=== PATIENT | female | born 1975 | race Caucasian/White ===

== ENCOUNTER → 2017-05-16 | Outpatient (CLI) | payer BC ==
--- NOTE | 2017-05-18 08:42 | MM ---
Reason for exam: screening (asymptomatic). Last mammogram was performed 6 years and 4 months ago. History: Family history of breast cancer in sister at age 41. Physical Findings: A clinical breast exam by your physician is recommended on an annual basis and results should be correlated with mammographic findings. MG Screening Mammo w CAD Bilateral CC and MLO view(s) were taken. Prior study comparison: December 30, 2010, CAD bilateral diagnostic mammogram. The breast tissue is heterogeneously dense. This may lower the sensitivity of mammography. Diffuse increased breast density from 2011. There is global asymmetry in the left upper outer quadrant. ASSESSMENT: Incomplete: need additional imaging evaluation, BI-RAD 0 RECOMMENDATION: Special view mammogram and ultrasound of the left breast. [facility] will attempt to contact patient to return for supplemental views and ultrasound.
== END | disposition home or self-care (01) ==
LOC: RADMAMWWP 14:53
PROVIDERS: ATTEND Obstetrics & Gynecology
DX: Z12.31 Encounter for screening mammogram for malignant neoplasm of breast (principal)

== ENCOUNTER → 2017-05-23 | Outpatient (CLI) | payer BC ==
--- NOTE | 2017-05-23 08:59 | MM ---
Reason for exam: additional evaluation requested from abnormal screening. Last mammogram was performed less than 1 month ago. History: Family history of breast cancer in sister at age 41. Took hormonal contraceptives for 4 years beginning at age 13. Physical Findings: Nurse Summary: 1cm nodule in the left breast at 1 o'clock (nurse kirill). MG 3D Work Up W/Cad LT Spot compression CC, spot compression MLO, and ML view(s) were taken of the left breast. Prior study comparison: May 16, 2017, bilateral MG screening mammo w CAD. December 30, 2010, CAD bilateral diagnostic mammogram. The breast tissue is heterogeneously dense. This may lower the sensitivity of mammography. Change in breast density is attributable to weight loss. Focal asymmetry appear as fibroglandular tissue on additional views. These results were verbally communicated with the patient and result sheet given to the patient on 05/23/17. ASSESSMENT: Benign, BI-RAD 2 RECOMMENDATION: Return to routine screening mammogram schedule for both breasts.
--- NOTE | 2017-05-23 09:00 | USB ---
Reason for exam: additional evaluation requested from abnormal screening. History: Family history of breast cancer in sister at age 41. Took hormonal contraceptives for 4 years beginning at age 13. US Breast Workup Limited LT Left breast ultrasound demonstrates few prominent ducts at 3 o'clock and a 0.6 x 0.6 x 0.2cm benign node at 3 o'clock. These results were verbally communicated with the patient and result sheet given to the patient on 05/23/17. ASSESSMENT: Benign, BI-RAD 2 RECOMMENDATION: Return to routine screening mammogram schedule for both breasts.
== END | disposition home or self-care (01) ==
LOC: RADMAMWWP 07:35
PROVIDERS: ATTEND Obstetrics & Gynecology
DX: R92.8 Other abnormal and inconclusive findings on diagnostic imaging of breast (principal)
CPT/HCPCS: 76642; G0206; G0279

== ENCOUNTER → 2018-07-11 | Outpatient (CLI) | payer BC ==
--- NOTE | 2018-07-12 14:01 | MM ---
Reason for exam: screening (asymptomatic). Last mammogram was performed 1 year and 2 months ago. History: Family history of breast cancer in sister at age 41. Took hormonal contraceptives for 4 years beginning at age 13. Physical Findings: A clinical breast exam by your physician is recommended on an annual basis and results should be correlated with mammographic findings. MG 3D Screening Mammo W/Cad Bilateral CC and MLO view(s) were taken. Prior study comparison: May 23, 2017, left breast MG 3d work up w/cad LT. May 16, 2017, bilateral MG screening mammo w CAD. The breast tissue is heterogeneously dense. This may lower the sensitivity of mammography. Benign appearing bilateral calcifications. No suspicious abnormality. No significant changes when compared with prior studies. ASSESSMENT: Benign, BI-RAD 2 RECOMMENDATION: Routine screening mammogram of both breasts in 1 year.
== END ==
LOC: RADMAMWWP 16:37
PROVIDERS: ATTEND Obstetrics & Gynecology
DX: Z12.31 Encounter for screening mammogram for malignant neoplasm of breast (principal); Z80.3 Family history of malignant neoplasm of breast
CPT/HCPCS: 77063; 77067

== ENCOUNTER → 2019-07-25 | Outpatient (CLI) | payer BC | END | disposition home or self-care (01) | LOC: LABWHC1 15:42 | PROVIDERS: ATTEND Obstetrics & Gynecology | DX: N83.291 Other ovarian cyst, right side (principal) | CPT/HCPCS: 36415 ==

== ENCOUNTER → 2019-08-09 | Outpatient (CLI) | payer BC ==
--- NOTE | 2019-08-12 12:07 | MM ---
Reason for exam: screening (asymptomatic). Last mammogram was performed 1 year and 1 month ago. History: Family history of breast cancer in sister at age 41. Took hormonal contraceptives for 4 years beginning at age 13. Physical Findings: A clinical breast exam by your physician is recommended on an annual basis and results should be correlated with mammographic findings. MG 3D Screening Mammo W/Cad Bilateral CC and MLO view(s) were taken. Prior study comparison: July 11, 2018, bilateral MG 3d screening mammo w/cad. May 23, 2017, left breast MG 3d work up w/cad LT. The breast tissue is heterogeneously dense. This may lower the sensitivity of mammography. Benign appearing bilateral calcifications. No suspicious abnormality. No significant changes when compared with prior studies. ASSESSMENT: Benign, BI-RAD 2 RECOMMENDATION: Routine screening mammogram of both breasts in 1 year.
== END | disposition home or self-care (01) ==
LOC: RADMAMWWP 07:14
PROVIDERS: ATTEND Obstetrics & Gynecology
DX: Z12.31 Encounter for screening mammogram for malignant neoplasm of breast (principal); Z80.3 Family history of malignant neoplasm of breast
CPT/HCPCS: 77063; 77067

== ENCOUNTER → 2019-08-14 | Outpatient (CLI) | payer BC ==
[2019-08-14 10:38] LABS: African American GFR (CKD) >90 (>60 ml/min/1.73 sqM); Anion Gap 8 mmol/L; Blood Urea Nitrogen 17 mg/dL (7-17); Carbon Dioxide 29 mmol/L (22-30); Chloride 104 mmol/L (98-107); Glucose 72 mg/dL (74-99); Non-African American GFR(CKD) >90 (>60 ml/min/1.73 sqM); Potassium 4.9 mmol/L (3.5-5.1); Sodium 141 mmol/L (137-145)
[2019-08-14 10:43] LABS: Basophils % (A) 1 %; Eosinophils # (A) 0.1 k/uL (0-0.7); Eosinophils % (A) 2 %; HGB 13.8 gm/dL (11.4-16.0); Lymphocytes # (A) 1.7 k/uL (1.0-4.8); Lymphocytes % (A) 30 %; MCH 29.5 pg (25.0-35.0); MCHC 30.7 g/dL (31.0-37.0); MCV 96.2 fL (80.0-100.0); Mean Platelet Volume 7.9; Monocytes # (A) 0.3 k/uL (0-1.0); Monocytes % (A) 6 %; Neutrophils # (A) 3.4 k/uL (1.3-7.7); Neutrophils % (A) 60 %; Platelet Count 243 k/uL (150-450); RBC 4.68 m/uL (3.80-5.40); RDW 12.6 % (11.5-15.5); WBC 5.7 k/uL (3.8-10.6)
== END | disposition home or self-care (01) ==
LOC: LABPAT 09:48
PROVIDERS: ATTEND Obstetrics & Gynecology
DX: Z01.812 Encounter for preprocedural laboratory examination (principal); N83.209 Unspecified ovarian cyst, unspecified side
CPT/HCPCS: 36415; 80051; 82565; 82947; 84520; 85025; 86850; 86900; 86901; 87086

== ENCOUNTER 2019-08-20 08:13 | Observation (INO) | payer BC ==
[2019-08-16 10:31] VITALS: BMI 31.6
[~2019-08-20 08:13] MED LIST: DEXAMETHASONE SOD PHOSPHATE 10 MG/ML 1 ML VIAL IV ONE; MIDAZOLAM 2 MG/2 ML VIAL IV PRN; ONDANSETRON 4 MG/2 ML VIAL IVP ONE; SCOPOLAMINE 1.5MG/72HR PATCH TRANSDERM ONE
[2019-08-20] MEDS: LACTATED RINGERS 1,000 ML IV SCH ×3 (09:02→22:41)
[2019-08-20] MEDS: LIDOCAINE 1% 20 ML VIAL (10MG/ML) FOR IV START INTRADERMA PRN ×2 (09:03→09:04)
[2019-08-20] MEDS ORDERED: PROPOFOL 10 MG/ML 20 ML VIAL IV ONE (09:53)
[2019-08-20] MEDS ORDERED: NEOSTIGMINE 1 MG/ML 10 ML VIAL ONE (09:53)
[2019-08-20] MEDS ORDERED: KETOROLAC 30 MG/ML 1 ML VIAL ONE (09:53)
[2019-08-20] MEDS ORDERED: LIDOCAINE 1% INJ 10MG/ML (20 ML MDV) ONE (09:53)
[2019-08-20] MEDS ORDERED: GLYCOPYRROLATE 0.2 MG/ML 2 ML VIAL ONE (09:53)
[2019-08-20] MEDS ORDERED: ROCURONIUM BROMIDE 10 MG/ML 10 ML VIAL IV ONE (09:53)
[2019-08-20] MEDS ORDERED: fentaNYL (PF) 50 MCG/ML 2 ML AMP ONE (09:53)
[2019-08-20] MEDS ORDERED: MIDAZOLAM 2 MG/2 ML VIAL ONE (09:53)
[2019-08-20] MEDS ORDERED: ceFAZolin 1,000 MG VIAL IVPB ONE (09:56)
[2019-08-20] MEDS ORDERED: BUPIVACAINE (PF) 0.25% 30 ML VIAL SQ ONE (10:25)
--- NOTE | 2019-08-20 11:29 | P.OP ---
Date of Procedure: 08/20/19 Preoperative Diagnosis: Adhesions Postoperative Diagnosis: Adhesions Right Ovarian cysts Anesthesia: GETA Surgeon: Dirk Betancourt Estimated Blood Loss (ml): 10 Pathology: none sent Condition: stable Disposition: PACU Description of Procedure: I have been consult by Dr. Guy regarding adhesions. Patient was undergoing laparoscopic robotic-assisted excision of a complex right ovarian cyst. Patient was found to have colon adherent to the cyst. Dr. Guy had partially dissected the colon off of the cyst. The remaining colon was dissected off the cyst using sharp dissection and gentle traction. There was no injury seen on the colon for the portion of my dissection. Please see Dr. Guy's operative note for the remainder of the procedure.
[2019-08-20] MEDS ORDERED: Acetaminophen-Codeine 300-30mg TAB PO PRN ×2 (11:40)
[2019-08-20] MEDS ORDERED: diphenhydrAMINE 50 MG/ML 1 ML VIAL IVP PRN (11:40)
[2019-08-20] MEDS ORDERED: METOCLOPRAMIDE 5 MG/ML 2 ML VIAL IVP PRN (11:40)
[2019-08-20] MEDS ORDERED: ONDANSETRON 4 MG/2 ML VIAL IVP PRN (11:40)
[2019-08-20] MEDS ORDERED: SIMETHICONE 80 MG CHEWABLE PO PRN (11:40)
[2019-08-20] MEDS ORDERED: IBUPROFEN 600 MG TAB PO PRN (11:40)
--- NOTE | 2019-08-20 11:57 | P.OP ---
Date of Procedure: 08/20/19 Preoperative Diagnosis: #1. Large complex right ovarian cyst Postoperative Diagnosis: Same plus #2. Extensive abdominopelvic adhesive disease Procedure(s) Performed: #1. Extensive adhesiolysis #2. Intraoperative general surgery consultation #3. Right salpingo-oophorectomy Anesthesia: DANA Surgeon: Aman Bobo [employer] #1: Anni Acevedo Estimated Blood Loss (ml): 10 IV fluids (ml): 700 Urine output (ml): 150 Pathology: other (Right tubo-ovarian mass) Condition: stable Disposition: PACU Operative Findings: pelvic examination demonstrated a small anteverted uterus with a mass immediately above it filling the entire right and central pelvis. Intraoperatively, there was moderate adhesions to the anterior abdominal wall from the omentum and colon. These were sharply removed with cautery. In the pelvis, there was dense adhesions from the colon to the central aspect of the ovarian mass which general surgery assisted in freeing. Otherwise, there was dense adhesions from the mass to the fundus of the uterus involving the entire tubo-ovarian area. The mass was also fairly confluent with the infundibulopelvic ligament. There was additionally some omental adhesions as well as other small and large bowel adhesions which were filmy in nature to the active exterior aspect of the large right ovarian complex which was otherwise benign in appearance. It was incidentally opened during the case and spilled alison to light brown clear serous type fluid. It was ultimately entirely decompressed with suction allowing the remainder of dissection to be done at the level of the uterus and infundibulopelvic ligament. Following removal, the left tubo-ovarian complex was noted to be significantly adhesed and clubbed as well but left without dissection secondary to the potential for bleeding or other complications. The right ureter was seen peristalsing throughout the entire case and at the end of the case. Urine was clear throughout. Description of Procedure: The patient was prepped and draped in usual fashion after general endotracheal anesthesia was administered by the anesthesiologist. A weighted speculum was placed in the anterior lip of the cervix grasped with a single-tooth tenaculum. Initial attempts to sound or dilate failed secondary to previous endometrial ablation. As result, an acorn cannula was placed for uterine manipulation. Attention was then turned to the abdomen where a site was selected approximately 3 cm above the umbilicus in the mid plane where an 8 mm incision was made in the transverse plane allowing insertion of a 5 mm optical trocar under direct vision station without difficulty. A pneumoperitoneum was established and a site selected approximately 10-12 cm lateral in the right lower quadrant in 4 syno vators inferior to the optical trocar where an 8 mm incision was made in the transverse plane allowing insertion of an 8 mm da Jasper trocar under direct visualization without difficulty. A similar incision and port were placed in the left lower quadrant. They're improving the left lower quadrant port and optical port was then bisected and a site selected approximately 4-5 synovators above the optical port where 1 cm incision was made along laser doubly 10 mm ortho assistant port under direct visualization without difficulty. Steep Trendelenburg positioning was then utilized and the robot docked without difficulty. The left arm was loaded with a [place] bipolar cautery forceps while the right arm was loaded with a monopolar cautery scissors. The adhesions as noted above were then dissected. The anterior abdominal wall adhesion from the omentum and colon was dissected at the anterior abdominal wall sharply with both bipolar and monopolar cautery. Near the level of the uterus dissection was halted and attention turned to the mass which had both filmy and dense adhesions to the small and large bowel. These were elevated and the planes followed carefully from the anterior around to the posterior using both sharp and blunt dissection. As we approached the central posterior portion of the dissection, it was apparent that the sigmoid colon was fairly densely adherent to the mass. General surgery was called for at which time attention was turned to the anterior portion where filmy and dense adhesions were similarly dissected using the [place] and monopolar cautery. Gen. surgery then took over and freed the underlying large intestine from the mass at which time it became significantly more mobile. Following this small puncture wound was accidentally made in the capsule which time began to drain alison to light brown stained clear serous type fluid. The suction western felt hat blocker was placed into the incision after slightly widening it and the mass drained of all of its fluid which significantly decompressed and allowed further dissection in a much simpler fashion. The [place] bipolar cautery forceps were utilized to come across the infundibulopelvic ligament which was then cut sharply with the monopolar cautery scissors. Similar dissection was carried out the point where the mass was adherent to the fundus of the uterus and at the cornu of the uterus where the tube would have been noted but could not be specifically identified. During the entire process of dissection. Occasional visualization of the ureter intra- abdominally demonstrated routine peristalsis and urine remained clear throughout. Once the massive been excised, a laparoscopic Endobag was placed into the abdomen through the ortho assistant port at which time the mass was placed into the bag and it was ultimately removed without difficulty and intact with no decompressed as noted earlier. Examination of all the sites of dissection demonstrated minimal 20 ongoing bleeding. Reexamination of the ureteral tract demonstrated normal peristalsis and urine remained clear. As result, the patient was undocked from the robot and removed from Trendelenburg in order to remove any further fluid that may have spilled into the upper abdomen secondary to steep Trendelenburg. Reexamination of the dissection areas again demonstrated hemostasis. The pneumoperitoneum was then evacuated thoroughly through the ports and the ports closed with interrupted subcuticular stitches of 4-0 Vicryl followed by half-inch Steri-Strips placed with Mastisol. Each incision was injected with a total of 10 mL of quarter percent Marcaine without epinephrine equally divided between each of the 4 incisions. The Kasper catheter had been removed as was the other vaginal instrumentation. Estimated blood loss for the entire case was approximately 10 mL. There were no complications. All sponge, instrument, and needle counts were correct. The patient tolerated the procedure well and proceeded to the recovery room in stable condition.
[2019-08-20] MEDS: HYDROmorphone 0.5 MG/0.5 ML SYRINGE IVP PRN ×2 (12:47→12:59)
[2019-08-20] MEDS: KETOROLAC 30 MG/ML 1 ML VIAL IVP PRN ×2 (17:59→23:53)
[2019-08-20 22:44] VITALS: RESP 18
[2019-08-21 05:48] VITALS: BP 107/66
[2019-08-21 07:31] LABS: Basophils % (A) 0 %; Eosinophils # (A) 0.1 k/uL (0-0.7); Eosinophils % (A) 1 %; HCT 39.3 % (34.0-46.0); HGB 13.2 gm/dL (11.4-16.0); Lymphocytes # (A) 1.8 k/uL (1.0-4.8); Lymphocytes % (A) 23 %; MCH 31.6 pg (25.0-35.0); MCHC 33.5 g/dL (31.0-37.0); MCV 94.5 fL (80.0-100.0); Mean Platelet Volume 8.2; Monocytes # (A) 0.3 k/uL (0-1.0); Monocytes % (A) 4 %; Neutrophils # (A) 5.4 k/uL (1.3-7.7); Neutrophils % (A) 71 %; Platelet Count 204 k/uL (150-450); RBC 4.16 m/uL (3.80-5.40); RDW 12.6 % (11.5-15.5); WBC 7.7 k/uL (3.8-10.6)
[2019-08-21 08:48] VITALS: PULSE 83; TEMP 97.4
--- NOTE | 2019-08-21 08:48 | P.DS ---
Providers Date of admission: 08/21/19 00:30 Expected date of discharge: 08/21/19 Attending physician: Aman Bobo Primary care physician: Сергей Palomino - Discharge Diagnosis(es) (1) Complex ovarian cyst Current Visit: Yes Status: Acute Hospital Course: The patient is a 44-year-old woman who was ultimately found to have a roughly 10 cm complex right adnexal mass by ultrasound. OVA 1 testing demonstrated low risk for malignancy and the decision was made to proceed with excision here locally. After discussion we opted to approach it with the da Jasper robotic system. She was taken the operating room where she underwent da Jasper robotically assisted right salpingo-oophorectomy with extensive adhesiolysis. There was a requirement for general surgical consult intraoperatively as the mass was fairly densely adherent to the sigmoid colon. Once this had been freed, the remainder of the dissection was carried out and on Ham fashion. The mass did rupture during the procedure spilling what appeared to be clear strawlike to light brown-colored fluid which was primarily evacuated with the suction logistics clerk. As the patient underwent fairly significant manipulation of the bowel and had a fairly significant dissection, the decision was made to keep her for 23 hour observation overnight. On postoperative day #1, the patient reported fairly regular flatus as well as hunger and tolerated regular diet. As result of this and her performance of all other activities of daily living, she was deemed stable for discharge and was discharged home to follow-up in the office in 2 weeks for routine follow-up. Discharge instructions included calling for any significantly increased fever, abdominal pain, incisional complaints, GI concerns, or anything else that concerned her. She was additionally instructed to abstain from any heavy lifting over the next 1-2 weeks. She understood her instructions and agrees to follow up as noted above. Discharge medications included only [id number] analgesic pain medications. Discharge hemoglobin and hematocrit were 13.2 and 39.3 respectively. Procedures: #1. Da Jasper robotically assisted right salpingo-oophorectomy #2. Extensive adhesiolysis #3. Intraoperative general surgery consultation Patient Condition at Discharge: Stable Plan - Discharge Summary Discharge Rx Participant: Yes New Discharge Prescriptions: No Action Hydrochlorothiazide [Hydrodiuril] 25 mg PO DAILY Fluticasone Nasal [place] [Flonase Nasal [place]] 1 spray EA NOSTRIL DAILY Omeprazole 20 mg PO QAM Loratadine-Pseudoeph 10-240 mg [Claritin-D 24 Hour] 1 tab PO DAILY Multivitamins, Thera [Multivitamin (formulary)] 1 tab PO DAILY Vitamin C(Dose Unknown) 1 tab PO DAILY Discharge Medication List Fluticasone Nasal [place] [Flonase Nasal [place]] 1 spray EA NOSTRIL DAILY 08/16/19 [History] Hydrochlorothiazide [Hydrodiuril] 25 mg PO DAILY 08/16/19 [History] Loratadine-Pseudoeph 10-240 mg [Claritin-D 24 Hour] 1 tab PO DAILY 08/16/19 [History] Multivitamins, Thera [Multivitamin (formulary)] 1 tab PO DAILY 08/16/19 [History] Omeprazole 20 mg PO QAM 08/16/19 [History] Vitamin C(Dose Unknown) 1 tab PO DAILY 08/16/19 [History] Follow up Appointment(s)/Referral(s): Aman Bobo MD [STAFF PHYSICIAN] - 2 Weeks Patient Instructions/Handouts: *Surgery [facility] - Scopalamine Patch Instructions Discharge Disposition: HOME SELF-CARE
== END 2019-08-21 10:20 | disposition home or self-care (01) ==
LOC: OR 08:13 → 4FBP 12:07 → OR 08-21 00:32
PROVIDERS: ADMIT Obstetrics & Gynecology; ATTEND Obstetrics & Gynecology
DX: N83.291 Other ovarian cyst, right side (principal); K66.0 Peritoneal adhesions (postprocedural) (postinfection); Z82.49 Family history of ischemic heart disease and other diseases of the circulatory system; Z83.3 Family history of diabetes mellitus; Z85.038 Personal history of other malignant neoplasm of large intestine; Z85.3 Personal history of malignant neoplasm of breast; I10 Essential (primary) hypertension; Z87.891 Personal history of nicotine dependence; H91.92 Unspecified hearing loss, left ear; Z79.899 Other long term (current) drug therapy
CPT/HCPCS: 58661; 81025; 86900; 86901; 85025; 86850; 88307; G0378; J2250; J1100; J2710; J2405; J0690; J2001; J3010; J1885; J2704; J1170

== ENCOUNTER → 2020-09-23 | Outpatient (CLI) | payer BC ==
--- NOTE | 2020-09-24 12:08 | MM ---
Reason for exam: screening (asymptomatic). Last mammogram was performed 1 year and 1 month ago. History: Family history of breast cancer in sister at age 41 and breast cancer in maternal aunt. Took hormonal contraceptives for 4 years beginning at age 13. Physical Findings: A clinical breast exam by your physician is recommended on an annual basis and results should be correlated with mammographic findings. MG 3D Screening Mammo W/Cad Bilateral CC and MLO view(s) were taken. Prior study comparison: August 09, 2019, bilateral MG 3d screening mammo w/cad. July 11, 2018, bilateral MG 3d screening mammo w/cad. The breast tissue is heterogeneously dense. This may lower the sensitivity of mammography. There is no discrete abnormality. No significant changes when compared with prior studies. ASSESSMENT: Negative, BI-RAD 1 RECOMMENDATION: Routine screening mammogram of both breasts in 1 year.
== END | disposition home or self-care (01) ==
LOC: RADMAMWWP 07:04
PROVIDERS: ATTEND Obstetrics & Gynecology
DX: Z12.31 Encounter for screening mammogram for malignant neoplasm of breast (principal); Z80.3 Family history of malignant neoplasm of breast
CPT/HCPCS: 77063; 77067

== ENCOUNTER → 2022-11-15 | Outpatient (CLI) | payer OTHER ==
--- NOTE | 2022-11-15 10:03 | MM ---
Reason for Exam: Screening (asymptomatic). Last mammogram was performed 2 year(s) and 2 month(s) ago. Patient History: Menarche at age 11. First Full-Term at age 18. Right ovary removed at age 22. Hormonal Contraceptives for 4 years from age 13 until age 17. Maternal aunt had breast cancer, age 65. Sister had breast cancer, age 41. Risk Values: Alyssa 5 year model risk: 1.8%. NCI Lifetime model risk: 16.7%. Prior Study Comparison: 07/11/2018 Bilateral Screening Mammogram, [facility]. 08/09/2019 Bilateral Screening Mammogram, [facility]. 09/23/2020 Bilateral Screening Mammogram, [facility]. Tissue Density: There are scattered fibroglandular densities. Findings: Analyzed By CAD. There is no suspicious group of microcalcifications or new suspicious mass in either breast. Overall Assessment: Negative, BI-RAD 1 Management: Screening Mammogram of both breasts in 1 year. A clinical breast exam by your physician is recommended on an annual basis and results should be correlated with mammographic findings. Electronically signed and approved by: Jhonatan Kiran M.D. Radiologis
== END | disposition home or self-care (01) ==
LOC: RADMAMWWP 06:56
PROVIDERS: ATTEND Obstetrics & Gynecology
DX: Z12.31 Encounter for screening mammogram for malignant neoplasm of breast (principal); Z80.3 Family history of malignant neoplasm of breast
CPT/HCPCS: 77063; 77067

== ENCOUNTER → 2024-01-18 | Outpatient (CLI) | payer OTHER ==
--- NOTE | 2024-01-19 08:44 | MM ---
Reason for Exam: Screening (asymptomatic). Last mammogram was performed 1 year(s) and 2 month(s) ago. Patient History: Menarche at age 11. First Full-Term at age 18. Right ovary removed at age 22. Hormonal Contraceptives for 4 years from age 13 until age 17. Maternal aunt had breast cancer, age 65. Sister had breast cancer, age 41. Risk Values: Alyssa 5 year model risk: 1.8%. NCI Lifetime model risk: 16.4%. Prior Study Comparison: 08/09/2019 Bilateral Screening Mammogram, [facility]. 09/23/2020 Bilateral Screening Mammogram, [facility]. 11/15/2022 Bilateral MG 3D screening mammo w/cad, [facility]. Tissue Density: There are scattered areas of fibroglandular density. Findings: Analyzed By CAD. There is no suspicious group of microcalcifications or new suspicious mass in either breast. Benign-appearing calcifications. Overall Assessment: Benign, BI-RAD 2 Management: Screening Mammogram of both breasts in 1 year. . Patient should continue monthly self-breast exams. A clinical breast exam by your physician is recommended on an annual basis. This exam should not preclude additional follow-up of suspicious palpable abnormalities. Note on Alyssa scores and lifetime risk: 1. A Alyssa score greater than 3% is considered moderate risk. If this is the case, consider specialist referral to assess eligibility for a risk reducing agent. 2. If overall lifetime risk for the development of breast cancer is 20% or higher, the patient may qualify for future screening with alternating mammogram and breast MRI. Electronically signed and approved by: Abdiel Pitt M.D. Radiologis
== END | disposition home or self-care (01) ==
LOC: RADMAMWWP 07:21
PROVIDERS: ATTEND Obstetrics & Gynecology
DX: Z12.31 Encounter for screening mammogram for malignant neoplasm of breast (principal); Z80.3 Family history of malignant neoplasm of breast
CPT/HCPCS: 77063; 77067

== ENCOUNTER → 2025-01-20 | Outpatient (CLI) | payer OTHER ==
--- NOTE | 2025-01-20 09:16 | MM ---
Reason for Exam: Screening (asymptomatic). Last screening mammogram was performed 12 month(s) ago. Patient History: Menarche at age 11. First Full-Term at age 18. Right ovary removed at age 22. Hormonal Contraceptives for 4 years from age 13 until age 17. Maternal aunt had breast cancer, age 65. Sister had breast cancer, age 41. Risk Values: Alyssa 5 year model risk: 1.9%. NCI Lifetime model risk: 16.2%. Prior Study Comparison: 09/23/2020 Bilateral Screening Mammogram, [facility]. 11/15/2022 Bilateral MG 3D screening mammo w/cad, [facility]. 01/18/2024 Bilateral MG 3D screening mammo w/cad, [facility]. Tissue Density: There are scattered areas of fibroglandular density. Findings: Analyzed By CAD. There is no suspicious group of microcalcifications or new suspicious mass in either breast. Overall Assessment: Negative, BI-RAD 1 Management: Screening Mammogram of both breasts in 1 year. Patient should continue monthly self-breast exams. A clinical breast exam by your physician is recommended on an annual basis. This exam should not preclude additional follow-up of suspicious palpable abnormalities. Note on Alyssa scores and lifetime risk: 1. A Alyssa score greater than 3% is considered moderate risk. If this is the case, consider specialist referral to assess eligibility for a risk reducing agent. 2. If overall lifetime risk for the development of breast cancer is 20% or higher, the patient may qualify for future screening with alternating mammogram and breast MRI. [facility], , 01/20/2025 9:13 AM. Electronically signed and approved by: India Foss M.D. Radiologist
== END | disposition home or self-care (01) ==
LOC: RADMAMWWP 07:01
PROVIDERS: ATTEND Obstetrics & Gynecology
DX: Z12.31 Encounter for screening mammogram for malignant neoplasm of breast (principal); R92.323 Mammographic fibroglandular density, bilateral breasts; Z80.3 Family history of malignant neoplasm of breast; Z92.0 Personal history of contraception
CPT/HCPCS: 77063; 77067